=== PATIENT | female | born 1990 | race Two or more races ===

== ENCOUNTER → 2017-03-12 | Outpatient (CLI) | payer OTHER ==
[~2017-03-12] MED LIST: ASCO10004 PO; DOCU240C31 PO; IBUP-1222 PO; LEVO25TA4 PO; MELA5TAB PO; OXYC-302 PO; SUMA100T3 PO; TOPI100T24 PO; TOPI50TA35 PO
== END | disposition home or self-care (01) ==
LOC: STAR 14:18
PROVIDERS: ATTEND Obstetrics & Gynecology
DX: Z01.818 Encounter for other preprocedural examination (principal); Z30.2 Encounter for sterilization
CPT/HCPCS: 36415; 84703; 85025